=== PATIENT | male | born 1985 | race African-American/Black ===

== ENCOUNTER 2016-07-28 07:29 | Emergency (ER) | payer MEDICAID ==
[~2016-07-28] VITALS: Ht 180.3 cm; Wt 68.5 kg
[~2016-07-28 07:29] MED LIST: LEVA15HF4
[2016-07-28] MEDS ORDERED: ALBUTEROL (07:52)
[2016-07-28 08:05] VITALS: BP 146/93
[2016-07-28] MEDS ORDERED: KETOROLAC 60MG/2ML VIAL IM ONE (09:00)
[2016-07-28] MEDS ORDERED: PREDNISONE 20MG TABLET PO ONE (09:00)
[2016-07-28] MEDS ORDERED: ALBUTEROL (0.083%) 2.5MG/3ML NEB HHN ONE (09:00)
[2016-07-28 09:12] LABS: BASOPHILS % 0.5 % (0.0-2.0); EOSINOPHILS % 4.2 % (0.0-5.0); HEMATOCRIT. 48.7 % (42.0-52.0); LYMPHOCYTES % 14.6 % (20.0-50.0); MEAN CORPUSCULAR HEMOGLOBIN 28.5 pg (28.0-32.0); MEAN CORPUSCULAR HGB CONC 32.9 g/dL (31.0-37.0); MEAN CORPUSCULAR VOLUME 86.6 fL (80.0-94.0); MEAN PLATELET VOLUME 7.4 fl (7.4-10.4); MONOCYTES % 8.5 % (2.0-8.0); NEUTROPHILS % 72.2 % (40.0-76.0); PLATELET 197 x1000/uL (130-400); RED BLOOD CELL COUNT 5.63 mill/uL (4.7-6.1); RED CELL DISTRIBUTION WIDTH 13.8 % (11.6-14.6)
[2016-07-28 09:19] LABS: PROTHROMBIN TIME 10.7 sec
[2016-07-28 09:27] LABS: ALANINE AMINOTRANSFERASE 24 IU/L (13-61); ALBUMIN 4.5 g/dL (3.4-5.0); ANION GAP 10; CALCIUM 9.4 mg/dL (8.5-10.1); CARBON DIOXIDE 31 mEq/L (21-32); CHLORIDE 106 mEq/L (98-107); INDEX HEMOLYSI 1 (1-3); INDEX ICTERIC 1 (1-4); INDEX LIPEMIC 1 (1-3); LIPASE 100 IU/L (73-393); TROPONIN I < 0.02 ng/mL (0.00-0.04); UREA NITROGEN BLOOD 14 mg/dL (7-21); eGFR > 60 mL/min (>60)
== END 2016-07-28 10:45 | disposition home or self-care (01) ==
LOC: ER 08:02
DX: J06.9 Acute upper respiratory infection, unspecified (principal); M25.552 Pain in left hip; J45.909 Unspecified asthma, uncomplicated; F17.210 Nicotine dependence, cigarettes, uncomplicated; F12.10 Cannabis abuse, uncomplicated; Z88.0 Allergy status to penicillin; Z96.649 Presence of unspecified artificial hip joint; Z98.890 Other specified postprocedural states
CPT/HCPCS: 36415; 71010; 80053; 83690; 84484; 85025; 85610; 85730; 93005; 94640; 96372; 99285; J1885; J7512; J7611; Z7610

== ENCOUNTER 2016-08-25 05:16 | Emergency (ER) | payer MEDICAID ==
[~2016-08-25] VITALS: Ht 180.3 cm; Wt 65.0 kg
[~2016-08-25 05:16] MED LIST changes: +ALBUTEROL; -LEVA15HF4
[2016-08-25] MEDS ORDERED: IPRATROPIUM/ALBUTEROL 0.5-3(2.5)MG/3ML NEB HHN ONE (06:45)
[2016-08-25] MEDS ORDERED: KETOROLAC 30MG/ML VIAL IM ONE (06:45)
[2016-08-25 10:11] VITALS: BP 124/78
== END 2016-08-25 10:15 | disposition home or self-care (01) ==
LOC: ER 05:16
DX: S70.00XA Contusion of unspecified hip, initial encounter (principal); J45.909 Unspecified asthma, uncomplicated; I10 Essential (primary) hypertension; Z88.0 Allergy status to penicillin; V87.8XXA Person injured in other specified noncollision transport accidents involving motor vehicle (traffic), initial encounter; Y93.55 Activity, bike riding; Y92.89 Other specified places as the place of occurrence of the external cause; Y99.8 Other external cause status
CPT/HCPCS: 73521; 94640; 96372; 99284; J1885; J7620

== ENCOUNTER 2017-01-12 10:32 | Emergency (ER) | payer MEDICAID ==
[~2017-01-12] VITALS: Ht 175.3 cm; Wt 70.0 kg
[2017-01-12] MEDS ORDERED: HYDROCODONE/ACETAMINOPHEN 5/325MG TABLET PO ONE (11:00)
[2017-01-12] MEDS ORDERED: AMOXICILLIN/POTASSIUM CLAVULANATE 875/125MG TAB PO ONE (11:00)
[2017-01-12] MEDS ORDERED: CLINDAMYCIN PHOSPHATE 600MG/4ML VIAL IM ONE (11:00)
[2017-01-12] MEDS ORDERED: EFAVIRENZ 600MG TABLET PO SCH (11:00)
[2017-01-12] MEDS ORDERED: TENOFOVIR 300MG TABLET PO SCH (11:00)
[2017-01-12] MEDS ORDERED: TETANUS, DIPHTHERIA, PERTUSSIS VAC/PF 0.5ML (>7YR OLD) IM ONE (11:00)
[2017-01-12] MEDS ORDERED: EMTRICITABINE 200MG CAPSULE PO SCH (11:00)
[2017-01-12] MEDS ORDERED: ONDANSETRON 4MG ODT PO ONE (11:00)
[2017-01-12 13:58] VITALS: BP 127/81
== END 2017-01-12 14:03 | disposition home or self-care (01) ==
LOC: ER 10:41
DX: M54.6 Pain in thoracic spine (principal); M54.2 Cervicalgia; R07.81 Pleurodynia; M79.602 Pain in left arm; M48.00 Spinal stenosis, site unspecified; J45.909 Unspecified asthma, uncomplicated; I10 Essential (primary) hypertension; Z96.649 Presence of unspecified artificial hip joint; Z88.0 Allergy status to penicillin; Y04.1XXA Assault by human bite, initial encounter; Y93.89 Activity, other specified; Y92.89 Other specified places as the place of occurrence of the external cause; Y99.8 Other external cause status
CPT/HCPCS: 71101; 72070; 72125; 90471; 90715; 96372; 99284; J3490; Q0162

== ENCOUNTER 2017-01-17 16:49 | Emergency (ER) | payer MEDICAID ==
[~2017-01-17] VITALS: Ht 180.3 cm; Wt 82.0 kg
[2017-01-17] MEDS ORDERED: ONDANSETRON HCL 4MG/2ML VIAL IV STA (23:55)
[2017-01-17] MEDS ORDERED: KETOROLAC 30MG/ML VIAL IV STA (23:55)
[2017-01-17] MEDS ORDERED: SODIUM CHLORIDE 0.9% 1,000 ML IV ONE (23:55)
[2017-01-17] MEDS ORDERED: FAMOTIDINE 20MG/2ML VIAL IV STA (23:55)
[2017-01-18 00:18] LABS: BASOPHILS % 0.3 % (0.0-2.0); EOSINOPHILS % 0.3 % (0.0-5.0); HEMATOCRIT. 47.6 % (42.0-52.0); HEMOGLOBIN. 15.9 g/dL (14.0-18.0); LYMPHOCYTES % 10.3 % (20.0-50.0); MEAN PLATELET VOLUME 7.2 fl (7.4-10.4); NEUTROPHILS % 84.1 % (40.0-76.0); PLATELET 266 x1000/uL (130-400); RED BLOOD CELL COUNT 5.67 mill/uL (4.7-6.1); RED CELL DISTRIBUTION WIDTH 13.9 % (11.6-14.6)
[2017-01-18 00:24] LABS: CHLORIDE 103 mEq/L (98-107)
[2017-01-18 00:33] LABS: CARBON DIOXIDE 26 mEq/L (21-32); ETHANOL BLOOD < 10 mg/dL
[2017-01-18 01:20] LABS: CLARITY URINE CLEAR (CLEAR); COLOR URINE YELLOW (YELLOW); GLUCOSE URINE NEGATIVE (NEGATIVE); KETONES URINE 2+ (NEGATIVE); LEUKOCYTE ESTERASE URINE NEGATIVE (NEGATIVE); NITRITE URINE NEGATIVE (NEGATIVE); OCCULT BLOOD URINE NEGATIVE (NEGATIVE); PH URINE 5.5 (4.5-8.0); PROTEIN URINE TRACE (NEGATIVE); SPECIFIC GRAVITY URINE 1.031 (1.005-1.030); UROBILINOGEN URINE 0.2 E.U./dL (0.2-1.0)
[2017-01-18 02:00] VITALS: BP 139/88
== END 2017-01-18 03:15 | disposition home or self-care (01) ==
LOC: ER 17:03
DX: K29.00 Acute gastritis without bleeding (principal); I10 Essential (primary) hypertension; G40.909 Epilepsy, unspecified, not intractable, without status epilepticus; J45.909 Unspecified asthma, uncomplicated; Z88.0 Allergy status to penicillin
CPT/HCPCS: 36415; 80053; 81001; 83690; 85025; 96361; 96374; 96375; 99285; G0482; J1885; J2405; J3490; J7030; Z7610

== ENCOUNTER 2017-02-04 09:58 | Emergency (ER) | payer MEDICAID ==
[~2017-02-04] VITALS: Ht 180.3 cm; Wt 68.0 kg
[2017-02-04 12:00] VITALS: BP 133/89
[2017-02-04] MEDS ORDERED: IPRATROPIUM BROMIDE (0.02%) 0.5MG/2.5ML NEB HHN ONE (12:30)
[2017-02-04] MEDS ORDERED: ALBUTEROL (0.083%) 2.5MG/3ML NEB HHN ONE (12:30)
== END 2017-02-04 13:31 | disposition home or self-care (01) ==
LOC: ER 12:42
DX: J45.901 Unspecified asthma with (acute) exacerbation (principal); I10 Essential (primary) hypertension; G40.909 Epilepsy, unspecified, not intractable, without status epilepticus; Z88.0 Allergy status to penicillin; F12.90 Cannabis use, unspecified, uncomplicated
CPT/HCPCS: 94640; 99283; J7611

== ENCOUNTER 2023-08-27 13:23 | Emergency (ER) | payer MEDICAID ==
[~2023-08-27] VITALS: Ht 185.4 cm; Wt 74.0 kg
[2023-08-27 13:45] VITALS: O2SAT 98
[2023-08-27] MEDS ORDERED: CLOT15CR27 TP (15:00)
[2023-08-27 15:11] VITALS: BP 143/98; PULSE 78; RESP 18; TEMP 98.7
== END 2023-08-27 15:13 | disposition home or self-care (01) ==
LOC: ER 13:23
DX: B35.6 Tinea cruris (principal); J45.909 Unspecified asthma, uncomplicated; I10 Essential (primary) hypertension; F12.10 Cannabis abuse, uncomplicated
CPT/HCPCS: 99282